=== PATIENT | female | born 1955 | race Caucasian/White ===

== ENCOUNTER → 2017-01-15 | Outpatient (CLI) | payer MEDICARE ==
[~2017-01-15] MED LIST: ALBUTEROL17 GM INH; ALBUTEROL20 ml INH; CITALOPRAM HBR40 MG PO; CLARITIN10 M2 PO; FLONASE 0.05% N16 G1; IBUPROFEN800 MG PO; KEFLEX500 MG PO; PANTOPRAZOLE SO40 MG PO; PREDNISONE10 MG PO; PROTONIX PO; SYMBICORT 16010.2 GM INH; VICODIN 5/500 T1 TAB PO; VITAMIN D50000 UNIT PO; WAL-TUSSIN100 MG/51 PO; ZITHROMAX600 MG PO
--- NOTE | ~2017-01-15 | BD1 ---
[facility] A Service of [facility] & [facility] RADIOLOGY TEXT RESULTS PATIENT: JAMES CHRISTINE LOCATION: SRAD : 53 UNIT #: [id number] AGE: [address]: Tayla Samaniego STRAWHAT SIZER SEX: F ORDER DR: [id number] [address] [address] [id number] O MR#: [id number] Acc #: [id number] NAME: JAMES CHRISTINE : 1955 SEX: F STUDY DATE/TIME: 01/15/2017 15:08 UNIT: [facility]AD ROOM: STUDY DESCRIPTION: BD Dexa Bone Dens 1+ Site Attending Physician: Tayla Samaniego A.P.R.N. Referring Physician: Tayla Samaniego A.P.R.N. Ordering Physician: Tayla Samaniego A.P.R.N. Primary Care Physician: [facility] MEDICAL IMAGING REPORT This report is preliminary unless electronic signature is present. EXAM DXA scan, 01/15/2017. HISTORY Status post menopause with no hormone replacement therapy. Osteopenia. Smoking history for 30 years. FINDINGS Bone mineral density in the lumbar spine from L1-L4 is 1.17 g/cm2 which is 0.1 standard deviations below the mean when compared to the young adult reference population which is within the range of normal. This is 0.3 standard deviations above the mean when compared to the age-matched population. Bone mineral density in the left femoral neck was 0.816 g/cm2 which is 1.6 standard deviations below the mean when compared to the young adult reference population which is characteristic of osteopenia. This is 0.9 standard deviations below the mean when compared to the age-matched population. Bone mineral density in the right femoral neck was 0.838 g/cm2 which is 1.4 standard deviations below the mean when compared to the young adult reference population which is characteristic of osteopenia. This is 0.7 standard deviations below the mean when compared to the age-matched population. IMPRESSION Bone mineral density in the lumbar spine within the range of normal and within the hips bilaterally characteristic of osteopenia. [facility] A Service of [facility] & [facility] / [facility] RADIOLOGY TEXT RESULTS PATIENT: JAMES CHRISTINE LOCATION: [facility] : 54 UNIT #: [id number] AGE: [address]: Tayla Samaniego SEX: F ORDER DR: Dictated by... Fausto Trotter M.D. THIS IS AN ELECTRONICALLY VERIFIED REPORT Fausto Trotter M.D. at 01/16/2017 7:35 AM JEAN CARLOS/kody TD: 01/15/2017 17:22 JOB #: [id number] MEDICAL IMAGING REPORT
== END | disposition home or self-care (01) ==
LOC: SRAD 14:47
DX: M81.0 Age-related osteoporosis without current pathological fracture (principal)
CPT/HCPCS: 77080

== ENCOUNTER → 2017-02-09 | Outpatient (CLI) | payer MEDICARE ==
--- NOTE | ~2017-02-09 | CT138 ---
[facility] A Service of [facility] RADIOLOGY TEXT RESULTS PATIENT: JAMES CHRISTINE LOCATION: [facility] : 53 UNIT #: [id number] AGE: [address]: Benson Wilson MD SEX: F ORDER DR: [id number] [place] [id number] O MR#: [id number] Acc #: [id number] NAME: JAMES CHRISTINE : 1955 SEX: F STUDY DATE/TIME: 02/09/2017 9:59 UNIT: [facility] ROOM: STUDY DESCRIPTION: CT Lung screening initial Attending Physician: Benson Wilson M.D. Referring Physician: Benson Wilson M.D. Ordering Physician: Benson Wilson M.D. Primary Care Physician: Benson Wilson M.D. MEDICAL IMAGING REPORT This report is preliminary unless electronic signature is present. EXAM CT of the chest without contrast, lung cancer screening HISTORY 61-year-old female with history of 30 pack year total smoking history. Current smoker. TECHNIQUE CT of the chest performed without contrast using a low dose lung cancer screening protocol. CT dose index 2.96 mGy. Coronal and sagittal reformatted images obtained. This CT exam was performed with one or more of the following radiation dose reduction techniques: automatic exposure control, adjustment of mA and/or kV according to patient size, and iterative reconstruction. COMPARISON No comparison are available. FINDINGS There is no suspicious pulmonary nodule. There is a calcified granuloma in the right lung base. No evidence of lymphadenopathy or pleural effusion. Limited imaging of the upper abdomen demonstrates a partially imaged large ventral abdominal wall hernia. Post surgical changes of the stomach. Bone windows demonstrate degenerative changes of the spine. IMPRESSION 1. There is no suspicious pulmonary nodule. ACR Lung-RADS category 1. Follow-up annual low dose lung cancer screening chest CT in one year. 2. Additional findings as described. [facility] A Service of [facility] RADIOLOGY TEXT RESULTS PATIENT: JAMES CHRISTINE LOCATION: [facility] : 53 UNIT #: [id number] AGE: [address]: Benson Wilson MD SEX: F ORDER DR: Dictated by... Arnaud Nicholas M.D. THIS IS AN ELECTRONICALLY VERIFIED REPORT Arnaud Nicholas M.D. at 02/09/2017 4:40 PM Gali TD: 02/09/2017 13:05 JOB #: [id number] MEDICAL IMAGING REPORT Page 1 of 1
== END | disposition home or self-care (01) ==
LOC: SCT 09:47
DX: F17.210 Nicotine dependence, cigarettes, uncomplicated (principal); J84.10 Pulmonary fibrosis, unspecified; K43.9 Ventral hernia without obstruction or gangrene; M47.819 Spondylosis without myelopathy or radiculopathy, site unspecified; Z98.890 Other specified postprocedural states
CPT/HCPCS: G0297

== ENCOUNTER → 2017-03-17 | Outpatient (CLI) | payer MEDICARE ==
--- NOTE | ~2017-03-17 | CR181 ---
[facility]. [facility] A Service of [facility] & [facility] RADIOLOGY TEXT RESULTS PATIENT: JAMES CHRISTINE LOCATION: SRA : 53 UNIT #: [id number] AGE: [address]: Tg Wilson MD SEX: F ORDER DR: [id number] [address] [address] [id number] O MR#: [id number] Acc #: [id number] NAME: JAMES CHRISTINE : 1955 SEX: F STUDY DATE/TIME: 03/17/2017 13:20 UNIT: [facility] ROOM: STUDY DESCRIPTION: CR Lumbar Spine 2 or 3 Views Attending Physician: Tg Wilson M.D. Referring Physician: Tg Wilson M.D. Ordering Physician: Tg Wilson M.D. Primary Care Physician: Benson Wilson M.D. MEDICAL IMAGING REPORT This report is preliminary unless electronic signature is present. EXAM Lumbar spine 3-view series HISTORY Low back pain for 2 weeks. FINDINGS Three views of the lumbar spine were obtained. There is mild disc space narrowing at L4-5. The AP view is slightly blurred. The other disc spaces are normal in height and the alignment is normal. IMPRESSION Mild L4-5 disc space narrowing, otherwise normal. Dictated by... Chino Lee M.D. THIS IS AN ELECTRONICALLY VERIFIED REPORT Chino Lee M.D. at 03/17/2017 4:25 PM DALY/jorge luis TD: 03/17/2017 16:09 JOB #: [id number] MEDICAL IMAGING REPORT Page 1 of 1
== END | disposition home or self-care (01) ==
LOC: SRAD 13:14
DX: M54.5 Low back pain (principal); M51.36 Other intervertebral disc degeneration, lumbar region
CPT/HCPCS: 72100

== ENCOUNTER 2017-05-17 21:04 | Emergency (ER) | payer MEDICARE ==
--- NOTE | ~2017-05-17 | CR72 ---
[facility] [place]. [facility] A Service of [facility] & [facility] RADIOLOGY TEXT RESULTS PATIENT: JAMES CHRISTINE LOCATION: SED : 53 UNIT #: [id number] AGE: [address]: Rom Donahue MD SEX: F ORDER DR: [id number] [address] [address] [id number] E MR#: [id number] Acc #: [id number] NAME: JAMES CHRISTINE : 1955 SEX: F STUDY DATE/TIME: 05/17/2017 21:29 UNIT: SED ROOM: STUDY DESCRIPTION: CR Chest Single View Portable Attending Physician: Rom Donahue M.D. Ordering Physician: Rom Donahue M.D. Primary Care Physician: Benson Wilson M.D. MEDICAL IMAGING REPORT This report is preliminary unless electronic signature is present. EXAM Portable chest. HISTORY Cough and congestion and shortness of air and wheezing for 2 weeks. FINDINGS The cardiac size and pulmonary vascularity are normal. No infiltrates or effusions. Incidental focal segmental elevation of the medial left hemidiaphragm is chronic. IMPRESSION No acute findings. Dictated by... Nolberto Nugent M.D. THIS IS AN ELECTRONICALLY VERIFIED REPORT Nolberto Nugent M.D. at 05/18/2017 5:39 PM DFAvery/kody TD: 05/18/2017 09:54 JOB #: [id number] MEDICAL IMAGING REPORT Page 1 of 1
== END 2017-05-17 22:19 | disposition home or self-care (01) ==
LOC: SED 21:04
DX: S51.012A Laceration without foreign body of left elbow, initial encounter (principal); S71.112A Laceration without foreign body, left thigh, initial encounter; F41.9 Anxiety disorder, unspecified; Y92.009 Unspecified place in unspecified non-institutional (private) residence as the place of occurrence of the external cause; E78.5 Hyperlipidemia, unspecified; W18.30XA Fall on same level, unspecified, initial encounter; F17.200 Nicotine dependence, unspecified, uncomplicated
CPT/HCPCS: 71010; 94640; 99285